=== PATIENT | male | born 1955 | race Caucasian/White ===

== ENCOUNTER 2020-04-04 12:36 | Emergency (ER) | payer OTHER ==
[~2020-04-04] VITALS: Ht 180.3 cm; Wt 87.8 kg
[2020-04-04] MEDS ORDERED: 0.9 % SODIUM CHLORIDE 10 ML DISP.SYRIN. IV PRN (12:45)
--- NOTE | 2020-04-04 12:48 | PHYS DOC ---
Past History Past Medical History: CAD, Hypertension Smoking: Non-smoker General Adult EDM: Chief Complaint: shortness of breath HPI: HPI: Patient is a 64-year-old male presents with chief complaint of shortness of breath. Patient was diagnosed with COVID-19 on February 25 and had the usual symptoms for about 5 days. Patient had a fever cough myalgias and diarrhea that improved. Patient had intermittent cough and shortness of breath since then. Last night patient had increased shortness of breath and wheezing and cough and night sweats. Symptoms are better with rest and worse with exertion. Review of Systems: Review of Systems: Constitutional: Denies fever or chills but has had sweats Eyes: Denies change in visual acuity HENT: Denies nasal congestion or sore throat Respiratory: Complains of cough and shortness of breath Cardiovascular: Denies chest pain or edema GI: Denies abdominal pain, nausea, vomiting, bloody stools or diarrhea : Denies dysuria Musculoskeletal: Denies back pain or joint pain Integument: Denies rash Neurologic: Denies headache, focal weakness or sensory changes Endocrine: Denies polyuria or polydipsia Lymphatic: Denies swollen glands Psychiatric: Denies depression or anxiety Current Medications: Current Meds: Current Medications Medications (Trade) Dose Ordered Sig/Saray Start Time Stop Time Status Last Admin Dose Admin Sodium Chloride (Normal Saline Flush) 10 ml QSHIFT PRN 04/04/20 12:45 UNV Physical Exam: PE: Constitutional: Well developed, well nourished, no acute distress, non-toxic appearance. [] HENT: Normocephalic, atraumatic, bilateral external ears normal, no trismus nose normal. [] Eyes: PERRLA, EOMI, conjunctiva normal, no discharge. [] Neck: Normal range of motion, no tenderness, supple, no stridor. [] No meningeal signs Cardiovascular:Heart rate regular rhythm, no murmur [] Lungs & Thorax: Bilateral expiratory wheezes, no respiratory distress Abdomen: , soft, no tenderness, no masses, no pulsatile masses. [] Skin: Warm, dry, no erythema, no rash. [] Back: No tenderness, no CVA tenderness. [] Extremities: No tenderness, no cyanosis, no clubbing, ROM intact, no edema. [] Neurologic: Alert and oriented X 3, normal motor function, normal sensory function, no focal deficits noted. [] Psychologic: Affect normal, judgement normal, mood normal. [] Current Patient Data: Labs: Laboratory Tests Test 04/04/20 13:00 04/04/20 13:05 White Blood Count 5.7 x10^3/uL Red Blood Count 4.79 x10^6/uL Hemoglobin 14.3 g/dL Hematocrit 43.1 % Mean Corpuscular Volume 90 fL Mean Corpuscular Hemoglobin 30 pg Mean Corpuscular Hemoglobin Concent 33 g/dL Red Cell Distribution Width 14.2 % Platelet Count 183 x10^3/uL Neutrophils (%) (Auto) 51 % Lymphocytes (%) (Auto) 26 % Monocytes (%) (Auto) 19 % Eosinophils (%) (Auto) 3 % Basophils (%) (Auto) 1 % Neutrophils # (Auto) 2.9 x10^3uL Lymphocytes # (Auto) 1.5 x10^3/uL Monocytes # (Auto) 1.1 x10^3/uL Eosinophils # (Auto) 0.2 x10^3/uL Basophils # (Auto) 0.0 x10^3/uL Prothrombin Time 9.8 SEC Prothromb Time International Ratio 0.9 Activated Partial Thromboplast Time 23 SEC D-Dimer (Katie) 0.42 mg/L Sodium Level 142 mmol/L Potassium Level 4.4 mmol/L Chloride Level 103 mmol/L Carbon Dioxide Level 30 mmol/L Anion Gap 9 Blood Urea Nitrogen 23 mg/dL Creatinine 0.9 mg/dL Estimated GFR (Cockcroft-Gault) 85.0 BUN/Creatinine Ratio 26 Glucose Level 94 mg/dL Lactic Acid Level 0.9 mmol/L Calcium Level 9.2 mg/dL Total Bilirubin 0.2 mg/dL Aspartate Amino Transf (AST/SGOT) 20 U/L Alanine Aminotransferase (ALT/SGPT) 42 U/L Alkaline Phosphatase 57 U/L Lactate Dehydrogenase 195 U/L Creatine Kinase 157 U/L Troponin I Quantitative < 0.017 ng/mL C-Reactive Protein 0.5 mg/L ND-Kha-D-Type Natriuretic Peptide 22 pg/mL Total Protein 6.8 g/dL Albumin 3.9 g/dL Albumin/Globulin Ratio 1.3 Urine Collection Type Unknown Urine Color Yellow Urine Clarity Clear Urine pH 8.0 Urine Specific [place] 1.020 Urine Protein Neg Urine Glucose (UA) Neg mg/dL Urine Ketones (Stick) Neg mg/dL Urine Blood Neg Urine Nitrite Neg Urine Bilirubin Neg Urine Urobilinogen Dipstick 0.2 mg/dL Urine Leukocyte Esterase Neg Urine RBC 0 /HPF Urine WBC 0 /HPF Urine Squamous Epithelial Cells Occ /LPF Urine Amorphous Sediment Present /HPF Urine Bacteria 0 /HPF Current Medications Medications (Trade) Dose Ordered Sig/Saray Route PRN Reason Start Time Stop Time Status Last Admin Dose Admin Sodium Chloride (Normal Saline Flush) 10 ml QSHIFT PRN IV AFTER MEDS AND BLOOD DRAWS 04/04/20 12:45 Methylprednisolone Sodium Succinate (SOLU-Medrol 125MG VIAL) 125 mg 1X ONCE IV 04/04/20 13:45 04/04/20 13:49 DC 04/04/20 14:07 Albuterol/ Ipratropium (Duoneb) 3 ml 1X ONCE NEB 04/04/20 13:45 04/04/20 13:49 DC 04/04/20 14:10 Vital Signs Date Time Temp Pulse Resp B/P (MAP) Pulse Ox O2 Delivery O2 Flow Rate FiO2 04/04/20 12:50 98.5 88 24 158/105 (122) 97 Room Air Vital Signs: Vital Signs Date Time Temp Pulse Resp B/P (MAP) Pulse Ox O2 Delivery O2 Flow Rate FiO2 04/04/20 12:50 98.5 88 24 158/105 (122) 97 Room Air EKG: EKG: [] EKG interpreted by me normal sinus rhythm with rate of 80 normal axis normal intervals normal ST segments Radiology/Procedures: Radiology/Procedures: [][address] [address] IMAGING REPORT Signed PATIENT: MALCOM GILLIS ACCOUNT: [id number] : 1955 LOCATION: ER AGE: 64 SEX: M EXAM STATUS: PRE ER ORD. PHYSICIAN: BROOK JEAN BAPTISTE MD REASON: SOA, COVID PROCEDURE: PORTABLE CHEST 1V EXAM: PORTABLE CHEST 1V 04/04/2020 12:42 PM CLINICAL INDICATION: Shortness of breath, Covid COMPARISON: None TECHNIQUE: AP upright view of the chest FINDINGS: The heart and mediastinum are normal. Lungs are well-expanded and clear. No consolidation, pleural effusion, or pneumothorax. Pulmonary vascularity is normal. The thoracic skeleton is intact. IMPRESSION: No acute cardiopulmonary abnormality. Electronically signed by: Maura Cole MD (04/04/2020 1:11 PM) [id number] DICTATED AND SIGNED BY: MAURA COLE MD DATE: 04/04/20 1311 CC: BROOK JEAN BAPTISTE MD; PCP,NO ~MTH0 0 Heart Score: HEART Score for Chest Pain: HEART Score for Chest Pain Response (Comments) Value History Slighlty/Non-Suspicious 0 ECG Normal 0 Age >45 - < 65 1 Risk Factors >3 Risk Factors or Hx CAD 2 Troponin < Normal Limit 0 Total 3 Risk Factors: Risk Factors: DM, Current or recent (<one month) smoker, HTN, HLP, family history of CAD, obesity. Risk Scores: Score 0 - 3: 2.5% MACE over next 6 weeks - Discharge Home Score 4 - 6: 20.3% MACE over next 6 weeks - Admit for Clinical Observation Score 7 - 10: 72.7% MACE over next 6 weeks - Early Invasive Strategies Course & Med Decision Making: Course & Med Decision Making Pertinent Labs and Imaging studies reviewed. (See chart for details) [] 64-year-old male who had COVID-19 approximately 6 weeks ago presents with shortness of breath and cough. Patient's work-up is negative including negative cardiac evaluation and negative D-dimer. Chest x-ray is negative. Doubt pulmonary embolism. Patient does have some bronchospasm on exam we will treat him with beta agonist and steroids. Patient is clinically stable for discharge outpatient follow-up Ju Disclaimer: Ju Disclaimer: This electronic medical record was generated, in whole or in part, using a voice recognition dictation system. Departure Departure: Impression: Primary Impression: Dyspnea Additional Impression: Bronchospasm Disposition: 01 DC HOME SELF CARE/HOMELESS Condition: STABLE Referrals: PCP,NO (PCP) [facility] [address] [place] [address] [facility] [address] [place] [address] [facility] [address] Patient Instructions: Bronchospasm, Adult Additional Instructions: EMERGENCY DEPARTMENT GENERAL DISCHARGE INSTRUCTIONS THANK YOU for coming to [facility] Emergency Department (ED) today and trusting us with your care. We trust that you had a positive experience in our Emergency Department. If you wish to speak to the department Management you can contact the emergency department at YOUR FOLLOW UP INSTRUCTIONS ARE FOLLOWS: Do you have a private doctor? If you do not have a private doctor, please ask for a resource list of physicians or clinics that may be able to assist you with follow up ca re. The Emergency Physician has interpreted your x-rays. The X-ray specialist will also review them. If there is a change in the findings you will be notified in 48 hours when at all possible. A lab test or lab culture may have been done, your results will be reviewed and you will be notified if you need a change in treatment. ADDITIONAL INSTRUCTIONS AND INFORMATION Your care today has been supervised by a physician who is specially trained in emergency care. Many problems require more than one evaluation for a complete diagnosis and treatment. We recommend that you schedule your follow up appointment as recommended to ensure complete treatment of your illness or injury. If you are unable to obtain follow up care and continue to have a problem, or if your condition worsens we recommend that you return to the ED. We are not able to safely determine your condition over the phone nor are we able to give sound medical advice over the phone. For these safety reasons, if you call for medical advice we will ask you to come to the ED for further evaluation If you have any questions regarding these discharge instructions please call the ED at SAFETY INFORMATION In the interest of safety, wellness, and injury prevention; we encourage you to wear your seatbelt, if you smoke; quit smoking, and we encourage your family to use protective helmet for bicycling and other sporting events that present an increased risk for head injury. IF YOUR SYMPTOMS WORSEN OR NEW SYMPTOMS DEVELOP, OR YOU HAVE CONCERNS ABOUT YOUR CONDITION; OR IF YOUR CONDITION WORSENS WHILE YOU ARE WAITING FOR YOUR FOLLOW UP APPOINTMENT; EITHER CONTACT YOUR PRIMARY CARE DOCTOR, THE PHYSICIAN WHOSE NAME AND NUMBER YOU WERE GIVEN, OR RETURN TO THE ED IMMEDIATELY. Scripts Prednisone (PREDNISONE) 20 Mg Tablet 60 MG PO DAILY for bronchospasm, #15 TAB Prov: BROOK JEAN BAPTISTE MD 04/04/20 Albuterol Sulfate (VENTOLIN HFA INHALER) 18 Gm Hfa.aer.ad 1 PUFF IH PRN Q4HRS PRN for FOR ASTHMA for 7 Days, #1 INHALER 0 Refills Prov: BROOK JEAN BAPTISTE MD 04/04/20 BROOK JEAN BAPTISTE MD Apr 04, 2020 12:48
--- NOTE | 2020-04-04 13:14 | RAD ---
EXAM: PORTABLE CHEST 1V 04/04/2020 12:42 PM CLINICAL INDICATION: Shortness of breath, Covid COMPARISON: None TECHNIQUE: AP upright view of the chest FINDINGS: The heart and mediastinum are normal. Lungs are well-expanded and clear. No consolidation, pleural effusion, or pneumothorax. Pulmonary vascularity is normal. The thoracic skeleton is intact. IMPRESSION: No acute cardiopulmonary abnormality. Electronically signed by: Maura Cole MD (04/04/2020 1:11 PM) [id number]
[2020-04-04 13:25] LABS: BASO % 1 % (0-3); EOS # 0.2 x10^3/uL (0.0-0.7); EOS % 3 % (0-3); HEMATOCRIT 43.1 % (39.0-53.0); HEMOGLOBIN 14.3 g/dL (13.0-17.5); LYMPH # 1.5 x10^3/uL (1.0-4.8); LYMPH % 26 % (24-48); MEAN CORPUSCULAR HEMOGLOBIN 30 pg (25-35); MEAN CORPUSCULAR HGB CONC 33 g/dL (31-37); MEAN CORPUSCULAR VOLUME 90 fL (79-100); MONO # 1.1 x10^3/uL (0.0-1.1); MONO % 19 % (0-9); NEUT # 2.9 x10^3uL (1.8-7.7); NEUT % 51 % (31-73); PLATELET COUNT 183 x10^3/uL (140-400); RED BLOOD COUNT 4.79 x10^6/uL (4.30-5.70); RED CELL DISTRIBUTION WIDTH 14.2 % (11.5-14.5); WHITE BLOOD COUNT 5.7 x10^3/uL (4.0-11.0)
[2020-04-04 13:33] LABS: CALCIUM 9.2 mg/dL (8.5-10.1); CREATININE 0.9 mg/dL (0.7-1.3); POTASSIUM 4.4 mmol/L (3.5-5.1)
--- NOTE | 2020-04-04 13:35 | EKG ---
[address] [address] Test Date: 2020-04-04 Test Time: 13:11:04 Pat Name: MALCOM GILLIS Department: Room: Gender: M [facility]: : 1955 Requested By: BROOK JEAN BAPTISTE Order Number: [id number] Reading MD: Alexis Monte MD Measurements Intervals [place] Rate: 80 P: 56 WV: 174 QRS: 18 QRSD: 98 T: 46 QT: 388 QTc: 451 Interpretive Statements SINUS RHYTHM Electronically Signed On 04-05-2020 10:52:50 MECHANICAL SOUND TECHNICIAN by Alexis Monte MD
[2020-04-04 13:45] LABS: BILIRUBIN,URINE NEG (NEG); CLARITY,URINE CLEAR; COLOR,URINE YELLOW; GLUCOSE,URINE NEG (NEG); NITRITE,URINE NEG (NEG); UROBILINOGEN,URINE 0.2 mg/dL (0.2 mg/dL)
[2020-04-04] MEDS ORDERED: methylPREDNISolone SOD SUCC PF 125 MG/2 ML VIAL. IV ONE (13:45)
[2020-04-04] MEDS ORDERED: IPRATRPIUM/ALBUTEROL 0.5/2.5MG 3 ML NEBU. NEB ONE (13:45)
[2020-04-04 13:46] LABS: BACTERIA,URINE 0 /HPF (0-FEW); RBC,URINE 0 /HPF (0-2); SQUAMOUS EPITHELIAL CELL,UR OCC /LPF; WBC,URINE 0 /HPF (0-4)
[2020-04-04 13:47] LABS: AMORPHOUS SEDIMENT,UR PRESENT /HPF
[2020-04-04 13:48] LABS: ALBUMIN 3.9 g/dL (3.4-5.0); ALBUMIN/GLOBULIN RATIO 1.3 (1.0-1.7); C REACTIVE PROTEIN 0.5 mg/L (0-3.3); TOTAL BILIRUBIN 0.2 mg/dL (0.2-1.0); TOTAL PROTEIN 6.8 g/dL (6.4-8.2)
[2020-04-04 13:51] VITALS: BP 170/80
[2020-04-04] MEDS ORDERED: ALBU2.5V8 IH (14:19)
[2020-04-04] MEDS ORDERED: PRED20TA PO (14:19)
== END 2020-04-04 14:40 | disposition home or self-care (01) ==
LOC: ER 12:36
DX: J98.01 Acute bronchospasm (principal); R06.00 Dyspnea, unspecified; I25.10 Atherosclerotic heart disease of native coronary artery without angina pectoris; I10 Essential (primary) hypertension
CPT/HCPCS: 36415; 71045; 80053; 81001; 82550; 83605; 83615; 83880; 84484; 85025; 85379; 85610; 85730; 86140; 87040; 93005; 94640; 96374; 99285; J2930